=== PATIENT | female | born 1950 | race Hispanic/Latino ===

== ENCOUNTER → 2025-06-13 | Outpatient (CLI) | payer MEDICARE, MEDICAID ==
--- NOTE | 2025-06-13 14:05 | EKG ---
[facility] Test Date: 2025-06-13 Test Time: 12:51:00 Pat Name: DESMOND RUIZ Department: [facility] Room: Gender: F [employer]anner: [id number] Requested By: KARLIE THOMAS Order Number: [id number] Reading MD: Amy Durbin Measurements Intervals [place] Rate: 70 P: 54 DE: 177 QRS: -9 QRSD: 85 T: 95 QT: 418 QTc: 453 Interpretive Statements Sinus rhythm Probable LVH with secondary repol abnrm No previous ECG available for comparison Electronically Signed On 06-13-2025 21:13:00 FELLER OPERATOR by Amy Durbin Please click the below link to view image of tracing.
--- NOTE | 2025-06-14 10:58 | HMCIMG ---
EXAM: CR CHEST, 1 VIEW CLINICAL HISTORY: Type II diabetes mellitus with foot ulcer. COMPARISON: None provided TECHNIQUE: Single frontal radiograph of the chest was obtained. FINDINGS: Lines/Devices: None. Lungs: There is a right lower lung nodule measuring approximately 1.4 x 1.2 cm. No other lung nodules or mass. No lung infiltrates. No pleural effusion or pneumothorax. Mediastinum and cardiovascular structures: There are calcific atherosclerotic plaques in the aorta. The cardiac silhouette is not enlarged. The central airway and mediastinal contours are unremarkable. Bones and soft tissues: Degenerative changes in the thoracic spine. IMPRESSION: 1. Right lower lung nodule measuring approximately 1.4 x 1.2 cm. Recommend further evaluation with CT chest. /[place]
== END | disposition home or self-care (01) ==
LOC: WHH 11:06
PROVIDERS: ATTEND Family Medicine
DX: E11.621 Type 2 diabetes mellitus with foot ulcer (principal); I70.0 Atherosclerosis of aorta; R91.1 Solitary pulmonary nodule; M47.814 Spondylosis without myelopathy or radiculopathy, thoracic region
CPT/HCPCS: 71045; 83036; 93005; G0463; A6209; A4450

== ENCOUNTER → 2025-06-19 | Outpatient (CLI) | payer MEDICARE, MEDICAID | END | disposition home or self-care (01) | LOC: WHH 08:57 | PROVIDERS: ATTEND Family Medicine | DX: E11.621 Type 2 diabetes mellitus with foot ulcer (principal); L97.515 Non-pressure chronic ulcer of other part of right foot with muscle involvement without evidence of necrosis; L97.525 Non-pressure chronic ulcer of other part of left foot with muscle involvement without evidence of necrosis; I10 Essential (primary) hypertension; E78.5 Hyperlipidemia, unspecified; E11.51 Type 2 diabetes mellitus with diabetic peripheral angiopathy without gangrene; K21.9 Gastro-esophageal reflux disease without esophagitis; Z89.422 Acquired absence of other left toe(s); Z89.412 Acquired absence of left great toe | CPT/HCPCS: 93923 ==

== ENCOUNTER → 2025-06-20 | Outpatient (CLI) | payer MEDICARE | END | disposition home or self-care (01) | LOC: WHH 10:54 | PROVIDERS: ATTEND Family Medicine | DX: E11.621 Type 2 diabetes mellitus with foot ulcer (principal); L97.515 Non-pressure chronic ulcer of other part of right foot with muscle involvement without evidence of necrosis; L97.525 Non-pressure chronic ulcer of other part of left foot with muscle involvement without evidence of necrosis; I10 Essential (primary) hypertension; E78.5 Hyperlipidemia, unspecified; E11.51 Type 2 diabetes mellitus with diabetic peripheral angiopathy without gangrene; K21.9 Gastro-esophageal reflux disease without esophagitis; Z79.4 Long term (current) use of insulin; Z89.412 Acquired absence of left great toe; Z89.422 Acquired absence of other left toe(s) | CPT/HCPCS: G0463; A6209 ==

== ENCOUNTER → 2025-06-27 | Outpatient (CLI) | payer MEDICARE ==
[~2025-06-27] MED LIST: HONEY 1 APPL/ML TUBE TP ONE
== END | disposition home or self-care (01) ==
LOC: WHH 08:59
PROVIDERS: ATTEND Family Medicine
DX: E11.621 Type 2 diabetes mellitus with foot ulcer (principal); L97.515 Non-pressure chronic ulcer of other part of right foot with muscle involvement without evidence of necrosis; L97.525 Non-pressure chronic ulcer of other part of left foot with muscle involvement without evidence of necrosis; I10 Essential (primary) hypertension; E78.5 Hyperlipidemia, unspecified; E11.51 Type 2 diabetes mellitus with diabetic peripheral angiopathy without gangrene; K21.9 Gastro-esophageal reflux disease without esophagitis; Z79.4 Long term (current) use of insulin; Z89.412 Acquired absence of left great toe; Z89.422 Acquired absence of other left toe(s)
CPT/HCPCS: G0463; A6209 ×2